=== PATIENT | female | born 2000 | race Caucasian/White ===

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

== ENCOUNTER 2019-09-09 16:09 | Observation (INO) ==
[~2019-09-09 16:09] MED LIST changes: -BCPILLS PO; -LACT3000 PO; -MULT-506 PO; +ONDANSETRON INJ 2 MG/ML 2 ML VIAL IV PRN; +OXYCODONE/ACETAMINOPHEN 5mg/325mg TAB PO PRN; -PRLSR20 PO
[2019-09-09] MEDS ORDERED: MoRPHine SULFATE 2 MG/ML CARP IV PRN (16:34)
[2019-09-09] MEDS ORDERED: MoRPHine SULFATE 4 MG/ML 1 ML CARP\\VIAL IV PRN (16:35)
--- NOTE | 2019-09-09 16:57 | History & Physical Report ---
Date of Service September 09, 2019 Assessment & Plan (1) Cholecystitis, acute: This is a 19yF with a PMH of IBS, anxiety/depression, GERD, who was referred to surgery clinic for gallbladder sludge visualized on RUQ US and development diarrhea over the past few weeks. Today patient underwent a HIDA scan for further workup revealing findings concerning for acute cholecystitis. Over the past two days patient has had attacks of severe pain in her epigastric region and RUQ, including today. Decision was made to bring patient in as a direct admission based on imaging findings and patient's worsening symptoms. On examination her abdomen is soft and non distended, but she is tender in the epigatric and RUQ regions. We will plan to obtain labs, start IVF for hydration, and order IV abx. Liquid diet okay for this evening and will make patient NPO at midnight for preparation of laparoscopic cholecystectomy tomorrow with Dr. Valle. Patient agreeable with plan. Admission and Anticipated Discharge Date Admission Date: September 09, 2019 History of Present Illness Primary Care Provider: Ana Ngo DO This is a 19yF with a PMH of IBS, anxiety/depression, GERD, who was referred to surgery clinic for gallbladder sludge visualized on RUQ US and development of ongoing diarrhea over the past few weeks. She was scheduled to undergo a HIDA scan today as an outpatient which showed nonvisualization of the gallbladder, concerning for acute cholecystitis. After the study the patient reports eating donut holes and developed upper abdominal pain & nausea. She says she has been dealing with lower abdominal pain and diarrhea over the past few weeks, but over the past two days started having intermittent episodes of upper abdominal pain. The patient has had a few attacks of this severe upper abdominal pain now, which she says are associated with nausea and are debilitating until the pain passes. The patient has subsequently been in contact with our outpatient office regarding the imaging findings and her symptoms and decision was made to bring her into the hospital and plan for the OR tomorrow. Allergies Allergy/AdvReac Type Severity Reaction Status Date / Time No Known Drug Allergies Allergy Verified 09/01/19 10:42 lactose AdvReac lactose Verified 09/01/19 10:42 intolerant Home Medications Home Medications Medication Instructions Recorded Confirmed Type multivitamin [Daily Multi-Vitamin] 1 tab PO QAM 03/25/18 09/09/19 History naproxen 500 mg tablet 500 mg PO Q12H PRN #30 tab 11/14/18 09/09/19 History triamcinolone acetonide 0.1 % 1 appln TOPICAL BID #1 gm 11/14/18 09/09/19 History topical cream plecanatide 3 mg tablet 3 mg PO DAILY #30 tab 04/04/19 09/09/19 Rx escitalopram oxalate 20 mg tablet 20 mg PO DAILY #30 tab 05/29/19 09/09/19 Rx norethindrone-e.estradiol-iron 1 tab PO HS 09/09/19 History pantoprazole 40 mg PO HS 09/09/19 09/09/19 History Past Med/Surg History Medical History Anxiety and depression Chronic constipation Chronic migraine Gallbladder sludge GERD (gastroesophageal reflux disease) Hx of menorrhagia Nausea and vomiting after administration of anesthetic agent (Resolved) Ovarian cyst (Resolved) Pityriasis rosea (Resolved) Surgical History History of foot surgery excision of water cyst from foot History of tonsillectomy and adenoidectomy History of wisdom tooth extraction Family History Father Allergies Grandmother (Maternal) Hypertension Leukemia Gout Sister Asthma Denies family history of Ovarian cancer Prostate cancer Breast cancer Colorectal cancer Social History Preferred Language: Kazakh Communication Ability: Effective Visual Impairment: No Limitations Hearing Ability: Normal Phone Circuit Operator Required: No Beliefs That Will Affect Care: None marital status: Single Current Living Situation: Other Current Living Situation Comment: lives with two friends current occupational status: employed and student 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[employer], 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 [employer] Other Information That Helps Us Care for You: No Feels Safe at Home: Yes Safety Concerns: Feels Safe At This Time Smoking Status: Never smoker Do You Dip or Chew Tobacco: No ; Second Hand Exposure: No ; Tobacco Cessation Education Requested by Patient: No Hx Alcohol Use: No Hx Substance Use: No Childhood Exposure to Second-Hand Smoke: No caffeine: No Dental Care, Regularly: Yes Physical Activity Frequency: Daily Seatbelt Use: always Review of Systems Constitutional: no fever and no chills Respiratory: no dyspnea Cardiovascular: no chest pain Gastrointestinal: + abdominal pain (lower abdominal pain associated with diarrhea with intermittent attacks of upper abd. pain), + nausea and + diarrhea/loose stools; no vomiting Physical Exam Physical Exam: awake/alert Respiratory: normal respiratory effort Gastrointestinal (Abdomen): Inspection/Auscultation: abdomen not distended Percussion/Palpation: + abdomen tender (mild ttp in epigastric region and RUQ) and abdomen soft Results & Data Results & Data ([facility]) Vital Signs (Past 12 Hours) Vital Signs Temp Pulse Resp BP Pulse Ox 09/09/19 16:51 36.9 C 92 H 17 112/75 97 US abdomen limited HISTORY: 19 years-old Female Positive Kamara sign, abdominal pain acute right upper quadrant abdominal pain COMPARISON: Abdominal ultrasound 02/27/2018 TECHNIQUE: Multiple real-time sonographic images of the abdominal right upper quadrant were obtained assessing grayscale appearance and color flow FINDINGS: The visualized pancreas is unremarkable. The liver is within normal limits. Moderate to large amount of layering gallbladder sludge. No gallbladder wall thickening or shadowing cholelithiasis. The sonographic Kamara sign was reportedly positive. Common bile duct is normal, 4 mm. The imaged right kidney is unremarkable. No hydronephrosis. IMPRESSION: 1. Moderate to large volume of layering gallbladder sludge. No shadowing cholelithiasis, gallbladder wall thickening or pericholecystic fluid to suggest acute cholecystitis. Weaving Instructor does however report the sonographic Kamara sign was reported as positive which is of unknown clinical significance. 2. No biliary ductal dilation. ACT 112: Negative or not required by law. The above report was generated using voice recognition software. It may contain grammatical, syntax or spelling errors. Electronically signed by: Burke Ramos M.D. 08/26/2019 9:32 AM NUCLEAR HEPATOBILIARY SCAN CLINICAL HISTORY: Right upper quadrant abdominal pain. COMPARISON STUDY: Abdominal ultrasound dated 08/26/2019. TECHNIQUE: Dynamic images of the liver and anterior abdomen were obtained every 5 minutes for a total of 60 minutes following the IV administration of 5.4mCi of technetium 99m Choletec. A delayed image was also taken at 4 hours time. FINDINGS: The hepatobiliary scan shows prompt and homogeneous hepatic uptake. There is visualized activity within the intra and extrahepatic biliary tree at 10 minutes. There is normal biliary to bowel transit, with small bowel visualized by 15 minutes. There is reflux of tracer into the stomach. There was nonvisualization of the gallbladder at one hour. The gallbladder was also not seen on the 4 hour delayed image. IMPRESSION: Nonvisualization of the gallbladder. Findings are highly concerning for acute cholecystitis. Electronically signed by: Chago Mcnulty M.D. 09/09/2019 2:19 PM Code Status & VTE Plan VTE Prophylaxis Plan VTE Prophylaxis will be ordered: Yes Supervising Physician Co-Signing Physician Notes agree with above. patient known to me from prior office visit for abdominal pain. Called for HiDA results concerning for acute cholecystitis. Nursing called patient, worsening pain so patient admitted and plan for cholecystectomy tomorrow. PG Care Time/CCT Total # of Minutes Spent Total Time Spent with Patient: Total time spent is greater than 50% in coordination of care (as documented) at patient's floor/unit and/or counseling patient: Coding Level of Care Code 80066 OBS Care - Level 3 Diagnoses Cholecystitis, acute K81.0
[2019-09-09 17:30] LABS: Basophils # (auto) 0.02 K/uL (0-0.2); Basophils % (auto) 0.4 %; Eosinophils # (auto) 0.25 K/uL (0-0.5); Eosinophils % (auto) 4.4 %; Hematocrit (blood only) 42.2 % (37-47); Hemoglobin 12.9 g/dL (12.0-16.0); Immature Granulocytes # (auto) 0.01 K/uL (0.00-0.02); Immature Granulocytes % (auto) 0.2 %; Lymphocytes # (auto) 2.77 K/uL (1.2-3.4); Lymphocytes % (auto) 48.5 %; Mean Corpuscular Hemoglobin 27.1 pg (25-34); Mean Corpuscular Volume 88.7 fL (80-100); Mean Platelet Volume 10.3 fL (7.4-10.4); Monocytes # (auto) 0.54 K/uL (0.11-0.59); Monocytes % (auto) 9.5 %; Neutrophils # (auto) 2.12 K/uL (1.4-6.5); Platelet Count 227 K/uL (130-400); RDW Coefficient of Variation 13.3 % (11.5-14.5); RDW Standard Deviation 43.3 fL (36.4-46.3); Red Blood Count 4.76 M/uL (4.2-5.4); White Blood Count 5.71 K/uL (4.8-10.8)
[2019-09-09 17:47] LABS: Alanine Aminotransferase 23 U/L (12-78); Albumin Level 3.7 gm/dl (3.4-5.0); Aspartate Aminotransferase 9 U/L (15-37); BUN Creatinine Ratio 11.4 (10-20); Bilirubin Direct < 0.1 mg/dl (0-0.2); Blood Urea Nitrogen 9 mg/dl (7-18); Calcium 8.7 mg/dl (8.5-10.1); Carbon Dioxide 27 mmol/L (21-32); Chloride 109 mmol/L (98-107); Est GFR (African American) 128.8; Est GFR (Non-African American) 111.1; Glucose 112 mg/dl (70-99); Potassium 3.3 mmol/L (3.5-5.1); Sodium 141 mmol/L (136-145)
[2019-09-09 17:50] LABS: Alkaline Phosphatase 84 U/L (45-117); Bilirubin,Total 0.3 mg/dl (0.2-1); Total Protein 7.7 gm/dl (6.4-8.2)
[2019-09-09] MEDS ORDERED: CEFAZOLIN 2000MG 2,000 MG/15 ML SYR IV SCH (18:00)
[2019-09-09] MEDS: SODIUM CHLORIDE 0.9% 1000ML 1,000 ML IV SCH (18:05)
[2019-09-09 19:16] LABS: Mean Corpuscular Hgb Conc 30.6 g/dL (32-36)
[2019-09-09] MEDS: cefOXitin 2,000 MG in DEXTROSE 5% 50 ML IV SCH (19:47)
[2019-09-09] MEDS ORDERED: Nursing to Pharmacy Communication SCH (22:15)
[2019-09-09] MEDS: PATIENT'S OWN ORAL CONTRACEPTIVE PO SCH (22:46)
[2019-09-09] MEDS: ESCITALOPRAM OXALATE 20 MG TAB PO SCH (22:47)
[2019-09-09] MEDS: PANTOprazole 40 MG TAB PO SCH (22:47)
[2019-09-10] MEDS: cefOXitin 2,000 MG in DEXTROSE 5% 50 ML IV SCH ×4 (00:36→14:13)
[2019-09-10] MEDS: SODIUM CHLORIDE 0.9% 1000ML 1,000 ML IV SCH ×3 (04:44→23:47)
[2019-09-10 06:16] LABS: Hematocrit (blood only) 40.1 % (37-47); Hemoglobin 12.3 g/dL (12.0-16.0); Mean Corpuscular Hemoglobin 27.4 pg (25-34); Mean Corpuscular Hgb Conc 30.7 g/dL (32-36); Mean Corpuscular Volume 89.3 fL (80-100); Mean Platelet Volume 10.1 fL (7.4-10.4); Platelet Count 197 K/uL (130-400); RDW Coefficient of Variation 13.3 % (11.5-14.5); RDW Standard Deviation 43.5 fL (36.4-46.3); Red Blood Count 4.49 M/uL (4.2-5.4); White Blood Count 5.73 K/uL (4.8-10.8)
[2019-09-10 06:54] LABS: Alanine Aminotransferase 21 U/L (12-78); Albumin Level 3.2 gm/dl (3.4-5.0); Aspartate Aminotransferase 10 U/L (15-37); BUN Creatinine Ratio 10.1 (10-20); Bilirubin Direct < 0.1 mg/dl (0-0.2); Blood Urea Nitrogen 8 mg/dl (7-18); Calcium 8.4 mg/dl (8.5-10.1); Carbon Dioxide 28 mmol/L (21-32); Chloride 111 mmol/L (98-107); Creatinine Clr Calc Pharmacy 119.9 ml/min; Est GFR (Non-African American) 114.7; Glucose 83 mg/dl (70-99); Potassium 3.6 mmol/L (3.5-5.1); Sodium 142 mmol/L (136-145)
[2019-09-10 06:56] LABS: Alkaline Phosphatase 71 U/L (45-117); Bilirubin,Total 0.5 mg/dl (0.2-1); Total Protein 6.7 gm/dl (6.4-8.2)
[2019-09-10] MEDS: PANTOprazole 40 MG TAB PO SCH ×2 (08:23→21:19)
[2019-09-10] MEDS: ESCITALOPRAM OXALATE 20 MG TAB PO SCH (08:23)
--- NOTE | 2019-09-10 09:31 | Surgery Progress Note ---
Date of Service September 10, 2019 Assessment & Plan (1) Cholecystitis, acute: 19-year-old female with HIDA scan showing acute cholecystitis Plan for laparoscopic cholecystectomy with possible cholangiogram today in the operating room The risk the procedure were discussed to include but not limited to bleeding, infection, retained stone, bile leak, damage surrounding structures, need for future more extensive surgery, open surgery, failure to treat symptoms, and the risk of anesthesia Possible discharge this afternoon if tolerates regular diet Wound care instructions and activity restrictions reviewed She will follow-up in 2 weeks Subjective 19-year-old female admitted after HIDA scan showed acute cholecystitis and she had persistent abdominal pain. Her pain is improved this morning, no other changes. Physical Exam Constitutional: WD/WN, vitals as above Gastrointestinal (Abdomen): normal bowel sounds, soft, nontender, no hepatosplenomegaly Results & Data Vital Signs (Past 12 Hours) Vital Signs Temp Pulse Resp BP Pulse Ox 09/10/19 07:21 37.0 C 65 18 107/69 99 09/09/19 23:36 36.9 C 63 112/70 98 PG Care Time/CCT Total # of Minutes Spent Total Time Spent with Patient: Total time spent is greater than 50% in coordination of care (as documented) at patient's floor/unit and/or counseling patient: Coding Level of Care Code 71788 Subseq Obs Care Lvl 2 Diagnoses Cholecystitis, acute K81.0
[2019-09-10] MEDS ORDERED: MIDAZOLAM HCL 1 MG/ML 2ML VIAL ONE (11:25)
[2019-09-10] MEDS ORDERED: PROPOFOL IV EMULSION 10 MG/ML 20 ML VIAL IV ONE (11:25)
[2019-09-10] MEDS ORDERED: LIDOCAINE HCL 2% 2 ML VIAL/AMP(20MG/ML) INFIL ONE (11:25)
[2019-09-10] MEDS ORDERED: fentaNYL citrate 100 MCG/2 ML VIAL ONE ×2 (11:25→12:15)
[2019-09-10] MEDS ORDERED: ROCURONIUM BROMIDE 10 MG/ML 5 ML VIAL IV ONE (11:25)
[2019-09-10] MEDS ORDERED: DEXAMETHASONE SOD INJ 4 MG/ML VIAL ONE (11:32)
[2019-09-10] MEDS ORDERED: ONDANSETRON INJ 2 MG/ML 2 ML VIAL ONE ×2 (11:32→12:10)
[2019-09-10] MEDS ORDERED: BUPIVACAINE 0.5 % 5 MG/1 ML MPF 30ML VIAL ONE (11:38)
[2019-09-10] MEDS ORDERED: SCOPOLAMINE 1.5 MG TDSY TD ONE (11:43)
--- NOTE | 2019-09-10 11:43 | Anesthesiology Consultation ---
Date of Service September 10, 2019 Assessment & Plan (1) Encounter for pre-operative examination: History Surgery Operation Date: 09/10/19 09:30 Proposed Procedures p Laparoscopic Cholecystectomy - David Valle DO, FACS Height/Weight Height: 5 ft 3 in Weight: 80.1 kg Allergies Allergy/AdvReac Type Severity Reaction Status Date / Time No Known Drug Allergies Allergy Verified 09/01/19 10:42 lactose AdvReac lactose Verified 09/01/19 10:42 intolerant Medications Home Medications Medication Instructions Recorded Confirmed Last Taken multivitamin [Daily Multi-Vitamin] 1 tab PO QAM 03/25/18 09/09/19 09/09/19 naproxen 500 mg tablet 500 mg PO Q12H PRN #30 tab 11/14/18 09/09/19 08/10/18 triamcinolone acetonide 0.1 % 1 appln TOPICAL BID #1 gm 11/14/18 09/09/19 09/08/19 topical cream plecanatide 3 mg tablet 3 mg PO DAILY #30 tab 04/04/19 09/09/19 09/08/19 escitalopram oxalate 20 mg tablet 20 mg PO DAILY #30 tab 05/29/19 09/09/19 09/08/19 norethindrone-e.estradiol-iron 1 tab PO HS 09/09/19 09/08/19 pantoprazole 40 mg PO HS 09/09/19 09/09/19 09/08/19 Active Medications Generic Name Dose Route Start Last Admin Trade Name Freq PRN Reason Stop Dose Admin Escitalopram Oxalate 20 mg 09/10/19 09:00 09/10/19 08:23 Lexapro Tab PO 10/10/19 08:59 Not Given QAM TAD Sodium Chloride 1,000 mls @ 100 mls/hr 09/09/19 16:15 09/10/19 11:25 Nss 1000ml IV 10/09/19 16:14 0 mls/hr .Q10H TAD Infusion Cefoxitin Sodium 2,000 mg/ 60 mls @ 100 mls/hr 09/09/19 18:00 09/10/19 11:25 Dextrose IV 09/19/19 16:44 Not Given Q6H TAD Miscellaneous 1 ea 09/09/19 23:00 09/09/19 22:46 Patient's Own Oral Contraceptive PO 10/09/19 22:59 1 ea HS TAD Administration Pantoprazole Sodium 40 mg 09/10/19 09:00 09/10/19 08:23 Protonix PO 10/10/19 08:59 Not Given QAM TAD NPO Date Last Intake of Fluids: 09/09/19 Time Last Intake of Fluids: 18:00 Date Last Intake of Solids: 09/09/19 Time Last Intake of Solids: 16:00 Past Medical History Medical History Anxiety and depression Chronic constipation Chronic migraine Gallbladder sludge GERD (gastroesophageal reflux disease) Hx of menorrhagia Nausea and vomiting after administration of anesthetic agent (Resolved) Ovarian cyst (Resolved) Pityriasis rosea (Resolved) Past Family History Family History Father Allergies Grandmother (Maternal) Hypertension Leukemia Gout Sister Asthma Denies family history of Ovarian cancer Prostate cancer Breast cancer Colorectal cancer Past Surgical History Surgical History History of foot surgery excision of water cyst from foot History of tonsillectomy and adenoidectomy History of wisdom tooth extraction Social History Smoking Status: Never smoker Do You Dip or Chew Tobacco: No Hx Alcohol Use: No Hx Substance Use: No substance use type: does not use Physical Exam Vital Signs Last Vital Signs Temp 36.9 C 09/10/19 11:26 Pulse 71 09/10/19 11:26 Resp 18 09/10/19 11:26 BP 120/67 09/10/19 11:26 Pulse Ox 98 09/10/19 11:26 Testing Laboratory Results 09/10/19 05:55 09/10/19 05:55 09/09/19 21:08 POC Ur Test Pending
[2019-09-10] MEDS ORDERED: ATROPINE SULFATE 0.1 MG/ML 10ML SYR IV PRN (11:46)
[2019-09-10] MEDS ORDERED: ONDANSETRON INJ 2 MG/ML 2 ML VIAL IV PRN (11:46)
[2019-09-10] MEDS ORDERED: HYDROmorphone INJ 1 MG/ML SYRINGE IV PRN (11:46)
[2019-09-10] MEDS ORDERED: fentaNYL citrate 100 MCG/2 ML VIAL IV PRN (11:46)
[2019-09-10] MEDS ORDERED: ePHEDrine sulfate 50 MG/ML AMP IV PRN (11:46)
[2019-09-10] MEDS ORDERED: DexMEDEtomidine HCL IV 100 MCG/ML VIAL ONE (12:22)
[2019-09-10] MEDS ORDERED: ePHEDrine sulfate 50 MG/ML AMP ONE (12:26)
[2019-09-10] MEDS ORDERED: NEOSTIGMINE METHYLSULFATE 5 MG/5 ML SYR ONE (12:48)
[2019-09-10] MEDS ORDERED: GLYCOPYRROLATE 0.2 MG/ML VIAL ONE ×2 (12:48)
--- NOTE | 2019-09-10 12:53 | Operative Report ---
PG Post Operative Report Pre & Post Diagnosis Operation Date: 09/10/19 09:30 Pre-Op Diagnosis: Acute Cholecystitis Post-Op Diagnosis: Acute on chronic cholecystitis I identified the patient and participated in the time-out.: Yes Procedure Operation Date: 09/10/19 09:30 Actual Procedures p Laparoscopic Cholecystectomy(Not Applicable) - David Valle DO, PADMA Surgeon David Valle DO, FACS Edge Trimmer Fran Cox Estimated Blood Loss 5 Findings Consistent with Post-Op Diagnosis Chronic cholecystitis. Critical view of safety obtained, cystic duct and artery doubly clipped and divided. Good hemostasis. Specimens Gallbladder and contents Anesthesia Type General Complications none Disposition Accompanied Patient To Recovery: No Disposition: Recovery Room Indications 19-year-old female with abdominal pain and HIDA scan showing acute cholecystitis admitted overnight. Plan for laparoscopic cholecystectomy with possible cholangiogram. The risks of the procedure were discussed, all questions were answered, and the patient agreed to proceed with surgery as planned. Description of Procedure The patient was properly identified, consented, and taken to the operating room where she was placed in the supine position. General endotracheal anesthesia was induced. SCDs and a safety belt were placed. Preoperative antibiotics were administered. The patient's abdomen was prepped and draped in the standard sterile fashion. A surgical timeout was performed and all parties were in agreement that this was the correct patient and procedure to be performed and we continued as planned. An incision was made superior and to the left of the umbilicus overlying the rectus muscle and the Veress needle was inserted. Saline drop test confirmed entry into the peritoneum. The abdomen was insufflated with carbon dioxide which the patient tolerated without incident. The abdomen was then entered using the Optiview technique and a 5 mm trocar. The laparoscope was inserted and no damage from initial trocar or Veress needle placement was noted, no gross abnormalities were noted within the 4 quadrants of the abdomen. An 11 mm port was placed in the subxiphoid position and two 5 mm ports were then placed in the right subcostal position. The patient was placed in reverse Trendelenburg position and rotated towards the left. The gallbladder appeared contracted and chronically inflamed. Some adhesions were taken down with blunt dissection electrocautery. The dome of the gallbladder was retracted towards the left upper quadrant and the infundibulum was retracted toward the right lower quadrant revealing Calot's triangle. Peritoneal attachments were taken down with electrocautery and blunt dissection. The cystic duct and artery were circumferentially dissected. A window of safety was obtained showing the cystic duct entering the gallbladder with no aberrant structures noted. The cystic duct and artery were doubly clipped and divided. The gallbladder was then lifted off the gallbladder fossa with electrocautery. The gallbladder was placed in an Endo Catch bag and removed through the subx iphoid port site. The right upper quadrant was irrigated and hemostasis was found to be good. 5 mm trochars were removed under direct visualization and the abdomen was allowed to collapse. The subxiphoid port site fascia was closed with 0 Vicryl suture utilizing the Shahriar-Nacho device. The wound was irrigated, and the skin of all ports was closed with 4-0 Monocryl subcuticular sutures. Dermabond was placed over the wounds. The patient was extubated in the operating room and taken to the PACU where she recovered without apparent incident. All sponge, instrument and needle counts were correct at the conclusion of the procedure. The patient tolerated the procedure well. The physician's assistant warehouse manager was present and scrubbed for the entirety of the case and was essential in positioning the patient, prepping and draping, retraction and exposure, driving the laparoscope, removal of the gallbladder, closure the incisions, and placement of the dressings. I attest to the content of the Intraoperative Record and any orders documented therein. Any exceptions are noted below.
--- NOTE | 2019-09-10 13:55 | Anesthesiology Progress Note ---
Date of Service September 10, 2019 Anesthesia Post Procedure Vital Signs Vital Signs: Temp Pulse Pulse Pulse Resp BP BP 09/10/19 13:40 89 19 112/58 L 09/10/19 13:30 71 19 114/61 09/10/19 13:20 68 13 111/52 L 09/10/19 13:10 36.2 C L 64 18 104/52 L 09/10/19 11:26 36.9 C 71 18 120/67 09/10/19 07:21 37.0 C 65 18 107/69 09/09/19 23:36 36.9 C 63 112/70 09/09/19 16:51 36.9 C 92 H 17 112/75 Pulse Ox 09/10/19 13:40 95 09/10/19 13:30 96 09/10/19 13:20 97 09/10/19 13:10 100 09/10/19 11:26 98 09/10/19 07:21 99 09/09/19 23:36 98 09/09/19 16:51 97 Pain Intensity Abdomen: Pain Intensity: 3 Transfer of Care Handoff Completed per policy Notes Mental Status: alert / awake / arousable and participated in evaluation Patient Amnestic to Procedure: Yes Nausea / Vomiting: adequately controlled Pain: adequately controlled Airway Patency, RR, SpO2: stable & adequate BP & HR: stable & adequate Hydration State: stable & adequate Anesthetic Complications: no major complications apparent and Pt Satisfied with anesthetic care
[2019-09-10] MEDS ORDERED: NAPROXEN 250 MG TAB PO PRN (14:12)
[2019-09-10] MEDS ORDERED: MoRPHine SULFATE 4 MG/ML 1 ML CARP\\VIAL IV PRN (14:12)
[2019-09-10] MEDS ORDERED: MoRPHine SULFATE 2 MG/ML CARP IV PRN (14:12)
[2019-09-10] MEDS ORDERED: cefOXitin 2,000 MG in DEXTROSE 5% 50 ML IV SCH (15:14)
[2019-09-10] MEDS: PATIENT'S OWN ORAL CONTRACEPTIVE PO SCH (21:17)
[2019-09-10] MEDS: NON-FORMULARY PATIENT'S OWN MED PO SCH (21:18)
--- NOTE | 2019-09-11 08:18 | Surgery Progress Note ---
Date of Service September 11, 2019 Assessment & Plan (1) Cholecystitis, acute: POD#1 laparoscopic cholecystectomy pt progressing well post op will d/c IVF and start patient on regular diet incisions c/d/i will check up on patient later for probable discharge will leave instructions for patient to follow up in clinic with Dr. Valle within 1-2 weeks Supervising Physician Co-Signing Physician Notes Patient seen and examined, agree with above. POD #1 laparoscopic cholecystectomy for cholecystitis, doing well. Some soreness in abdomen, but better than prior to admission. On exam afebrile with stable vitals, incisions with Dermabond no evidence of infection. Abdomen probably tender to palpation. Diet as tolerated, DC to home, activity restrictions and wound care instructions reviewed, follow-up in clinic in 2 weeks Subjective Patient said she was up frequently during the night peeing. She has some pain, but is managed with prn pain meds. Denies nausea. Tolerated clears. Physical Exam Physical Exam: easily arousable, and communicative Respiratory: normal respiratory effort Gastrointestinal (Abdomen): Inspection/Auscultation: + abdominal surgical incision (c/d/i with dermabond over incisions) Percussion/Palpation: + abdomen tender (some ttp mike-incisionally, mostly around epigastric region) and abdomen soft Results & Data Vital Signs (Past 12 Hours) Vital Signs Temp Pulse Resp BP BP Pulse Ox 09/11/19 07:25 36.8 C 57 L 16 94/54 L 98 09/11/19 03:31 37.1 C 59 L 18 107/67 97 09/10/19 23:11 36.8 C 69 18 109/66 96 PG Care Time/CCT Total # of Minutes Spent Total Time Spent with Patient: Total time spent is greater than 50% in coordination of care (as documented) at patient's floor/unit and/or counseling patient: Coding Level of Care Code None Diagnoses Cholecystitis, acute K81.0
[2019-09-11] MEDS: NON-FORMULARY PATIENT'S OWN MED PO SCH (08:21)
[2019-09-11] MEDS ORDERED: ESCITALOPRAM OXALATE 20 MG TAB PO SCH ×2 (09:00→21:00)
[2019-09-11] MEDS ORDERED: PANTOprazole 40 MG TAB PO SCH (21:00)
--- NOTE | 2019-09-15 11:00 | Discharge Summary ---
Date of Service September 15, 2019 Admission HPI Per Admitting Provider This is a 19yF with a PMH of IBS, anxiety/depression, GERD, who was referred to surgery clinic for gallbladder sludge visualized on RUQ US and development of ongoing diarrhea over the past few weeks. She was scheduled to undergo a HIDA scan today as an outpatient which showed nonvisualization of the gallbladder, concerning for acute cholecystitis. After the study the patient reports eating donut holes and developed upper abdominal pain & nausea. She says she has been dealing with lower abdominal pain and diarrhea over the past few weeks, but over the past two days started having intermittent episodes of upper abdominal pain. The patient has had a few attacks of this severe upper abdominal pain now, which she says are associated with nausea and are debilitating until the pain passes. The patient has subsequently been in contact with our outpatient office regarding the imaging findings and her symptoms and decision was made to bring her into the hospital and plan for the OR tomorrow. Principal Diagnosis Acute cholecystitis Discharge Exam Gastrointestinal (Abdomen) Inspection/Auscultation: + abdominal surgical incision (clean, dry) Percussion/Palpation: abdomen soft Discharge Data Allergies Allergy/AdvReac Type Severity Reaction Status Date / Time No Known Drug Allergies Allergy Verified 09/01/19 10:42 lactose AdvReac lactose Verified 09/01/19 10:42 intolerant Procedures Performed Operation Date: 09/10/19 09:30 Actual Procedures p Laparoscopic Cholecystectomy(Not Applicable) - David Valle DO, FACS Hospital Course (1) Cholecystitis, acute: 19 y/o female had outpatient HIDA showing acute cholecystitis and was continuing to have symptoms was admitted to the surgery service for IV medication and laparoscopic cholecystectomy planned for the next morning. The procedure was well tolerated, she was returned to the surgical floor for observation. She continued to require IV medication and was slow to advance diet. By the next morning she was able to advance diet and tolerate oral an algesics. She was stable for discharge home. Total Time Total Time Spent Total Time Spent (In Minutes): 10 Discharge Plan Discharge Items Patient Disposition: Home - Self-Care Reason For Visit: Cholelithiasis Discharge Diagnosis: Laparoscopic cholecystectomy Activity: As commented below Lifting: No more than 10 pounds Bathing Comment: ok to shower Driving/Machine Use: Resume 3 days after discharge Non-emergency contact: Surgeon Call non-emergency contact if: you have any medication questions, your pain is not controlled, you have a fever, your temperature is above 101.5 and your wound has increased redness Follow-up/Referrals: Ana Ngo DO [Primary Care Provider] - David Valle DO, FACS [Physician] - (Call the office to make an appt in 1-2 weeks) Diet: Regular Addtl Attending Provider Instructions: Pending Studies at Discharge: No Stand-Alone Forms: My [facility] [employer], Smoking Cessation Medications and DC Order Prescriptions: New oxycodone-acetaminophen [Percocet] 5-325 mg tablet 1 - 2 tab PO .q4-6h PRN (Reason: pain, for initial therapy, max 6 tabs per day) Qty: 15 RF: 0 Continued Trulance 3 mg tablet 3 mg PO DAILY Qty: 30 RF: 5 escitalopram oxalate 20 mg tablet 20 mg PO DAILY Qty: 30 RF: 5 triamcinolone acetonide 0.1 % cream 1 appln topical BID Qty: 1 RF: 0 naproxen 500 mg tablet 500 mg PO Q12H PRN (Reason: pain) Qty: 30 RF: 0 multivitamin [Daily Multi-Vitamin] Tablet 1 tab PO QAM RF: 0 pantoprazole 40 mg tablet,delayed release (DR/EC) 40 mg PO HS RF: 0 norethindrone-e.estradiol-iron 1 mg-20 mcg (24)/75 mg (4) tablet 1 tab PO HS RF: 0 Discharge Orders: Discharge Order (Routine); Ordered 09/11/19 Ordered By: Emmie Gloria Admission Data Admit Date/Time: 09/09/19 16:09 Attending Provider: David Valle Admit Provider: David Valle Primary Care Provider: Ana Ngo Other Interventions: Discharge Summary Assessment (RN) Last Done: 09/11/19 11:56 DC Date/Time DO NOT enter until pt leaves facility: 09/11/19 12:47 Coding Level of Care Code D/C Day Management <30 mins Diagnoses Cholecystitis, acute K81.0
== END 2019-09-11 12:47 | disposition home or self-care (01) ==
LOC: INTOOBSV 16:09 → 3N 16:09 → EDSTATUS 09-10 09:30 → 3W 09-10 18:54